=== PATIENT | female | born 1945 | race Caucasian/White ===

== ENCOUNTER 2017-02-27 13:47 | Inpatient (IN) | payer MEDICARE, OTHER ==
[~2017-02-27] VITALS: Ht 162.6 cm; Wt 66.1 kg
--- NOTE | ~2017-02-27 | EKG ---
PATIENT: BEKAH MERRITT UNIT #: [id number] Ventricular Rate: 98 BPM Atrial Rate: 98 BPM P-R Interval: 140 ms QRS Duration: 82 ms Q-T Interval: 400 ms QTC Calculation(Bezet): 510 ms P [place]: 62 degrees Calculated R [place]: 15 degrees Calculated T [place]: 44 degrees Diagnosis Line: Normal sinus rhythm Diagnosis Line: Nonspecific ST abnormality Diagnosis Line: Prolonged QT Diagnosis Line: Abnormal ECG Diagnosis Line: Diagnosis Line: Confirmed by GREGG LINDSEY MD ([id number]) on Diagnosis Line: 02/27/2017 3:34:23 PM INTERPRETING MD: JAZMYNE
--- NOTE | ~2017-02-27 | CO ---
Unit #: [id number] #: [id number] Patient: BEKAH MERRITT [id number] [facility]. [place], [place] [address] [id number] I MR#: [id number] NAME: BEKAH MERRITT ROOM: 55 Age: 71 Sex: F Admission Date: 02/27/2017 : 1945 Attending Physician: Handy Herring M.D. Primary Care Physician: Rajni Chaidez M.D. CONSULTATION REPORT JOB NOTE: CC: PRIMARY CARE PHYSICIAN REASON FOR CONSULTATION Cardiac management. HISTORY OF PRESENT ILLNESS This is a very pleasant 71-year-old female, who follows in the office with Dr. Kim. She has a past medical history of paroxysmal atrial fibrillation, not currently on any anticoagulation secondary to history of acute GI bleed secondary to AVMs back in March. States she has been tried on 2 anticoagulants and had bleeding with both, therefore, she has been off any anticoagulation since about April. She is currently only receiving aspirin, CAD status post PTCA and stent to the proximal and distal RCA in 2006, CVA, peripheral vascular disease with a history of bilateral carotid endarterectomies, hypertension, hyperlipidemia, diabetes mellitus, COPD on home oxygen therapy, chronic diastolic CHF, and obstructive sleep apnea. Last cardiac catheterization performed in 2008 revealed patent stents in the right coronary artery. She did have a 20% stenosis of the distal stent, but the left LAD and left main were normal. Circumflex is not visualized, probably absent or diminutive. The patient is RCA dominant. Last echocardiogram in 02/2016 showed an LVEF of 60, fzbl-qk-tecaepys MR and TR, and RVSP of 60 mmHg as well as some mild aortic stenosis. She presented to the hospital on 02/27/2017 secondary to complaints of increasing shortness of breath and dyspnea on exertion. The patient reports to me she has not been feeling well. States Sunday and Sunday she had some diarrhea and some abdominal cramping; however at present, her diarrhea has now resolved. She states however Sunday later in the day, her shortness of breath was worsening and she was very dyspneic with any exertion. She denied any complaints of chest pain or palpitations. She does state her oxygen saturations at home are dropping as she has a pulse oximetry where she checks at home. Saturations were running in the 70s. She is on oxygen at 3 L at home. She does report 2-pillow orthopnea, which is not new and does sleep in a recliner typically. She denies any fever or cough. Does report she has some back pain. She reports she had a recent injury to her back and had been undergoing physical therapy, but apparently re-injured again recently and that has been bothering her as of late. In the ER, oxygen saturation was noted to be in the 80s on 3 L nasal cannula. Her chest x-ray showed an enlarging right lower lobe pulmonary nodule/mass up to 5.5 cm concerning for primary pulmonary malignancy. The patient underwent CTA of the chest, which did show 5.3 cm maximum Unit #: [id number] #: [id number] Patient: BEKAH MERRITT dimension right lower lobe mass with moderate mediastinal adenopathy, largest node also measures 3.7 cm. This is concerning for right lower lobe carcinoma and metastatic disease. Initial blood pressure in the emergency room is 87/57. The patient was placed on increasing oxygen and also started on empiric antibiotic therapy. Initial lactic acid was 6.8, repeat lactic acid was 3.6. Initial EKG shows atrial fibrillation with rapid ventricular response rate of 129 beats per minute. Minimal voltage criteria for LVH. She did have some ST depression in the lateral leads. This could be rate related. Point of care troponin was less than 0.05. Repeat troponin was 0.10 and the patient did receive 250 mL fluid bolus x1 as well as Lopressor 2.5 mg IV x1 and was started on a low-dose beta marcelle. It appears she converted to normal sinus rhythm in approximately 220 this morning. At present, she is feeling better. She is resting in bed. Her breathing is better on 6 L nasal cannula. She does states she is still short of breath with minimal activity, but denies any chest pain or complaints of palpitations. PAST MEDICAL HISTORY 1. Coronary artery disease, status post PCI and stent in the proximal and distal RCA in 2006. 2. Last cardiac cath in 2008 revealed patent stents in the RCA with a 20% residual stenosis in the distal stent. Left main and LAD were normal. Left circumflex is not visualized and questionably congenitally absent as the patient is RCA dominant. 3. 2D echocardiogram on 03/06/2016 showed LVEF of 60%, eeuf-ys-tcqrkugk MR, TR, mild LVH, mild aortic stenosis. RVSP of 60 mmHg. 4. Paroxysmal atrial fibrillation, not on anticoagulation secondary to history of previous GI bleed with AVMs, now currently in sinus rhythm. 5. History of GI bleeding with AVMs. 6. Peripheral arterial disease with history of bilateral carotid endarterectomy. 7. CVA. 8. COPD, on home oxygen therapy. 9. Obstructive sleep apnea. 10. Hypertension. 11. Hyperlipidemia. 12. Diabetes mellitus type 2. 13. Tobacco abuse, down from 2 packs per day to 4 cigarettes per day. 14. Chronic diastolic CHF. PAST SURGICAL HISTORY 1. Cardiac catheterization. 2. Bilateral carotid endarterectomies. 3. Abdominal aortic aneurysm repair. HOME MEDICATIONS ProAir HFA one puff inhalation q.i.d. p.r.n., Combivent 1 puff inhalation every 6 hours p.r.n., Symbicort 80/4.5 two puffs inhalation b.i.d., amiodarone 50 mg p.o. daily, Paxil 20 mg p.o. daily, Lopressor 12.5 mg p.o. b.i.d., Col-Rite 100 mg p.o. b.i.d., MiraLAX 1 pack p.o. daily, Bumex 1 mg p.o. daily, Lipitor 20 mg p.o. daily, hydralazine 25 mg p.o. b.i.d., ferrous gluconate 324 mg p.o. daily, aspirin 81 mg p.o. daily, Lortab 5/325 one tab p.o. q.4 hours p.r.n., pantoprazole 40 mg p.o. q.a.m., folic acid 1 mg p.o. daily, Vitamin B12 1000 mcg p.o. daily. ALLERGIES Unit #: [id number] #: [id number] Patient: BEKAH MERRITT Codeine, penicillin, and Wellbutrin. SOCIAL HISTORY The patient lives with her daughter. Reformed tobacco abuse. Reports occasional alcohol use and denies any illicit drug use. FAMILY HISTORY Negative for coronary artery disease. REVIEW OF SYSTEMS 10-point review of systems was negative except for details as stated above in the HPI. PHYSICAL EXAMINATION VITAL SIGNS: Temperature 97.6, respiratory rate 18 to 20, pulse is 82, blood pressure 156/68. GENERAL: This is a 71-year-old female, in no acute distress. HEENT: Head is atraumatic and normocephalic. Pupils are equal and round. Mucous membranes are moist. NECK: Supple. No JVD. Normal carotid upstrokes. No bruits are auscultated. HEART: S1 and S2. Regular rate and rhythm. Ejection systolic murmur noted. LUNGS: Clear to auscultation. Some fine rales are noted bibasilar. No wheezes or rhonchi. ABDOMEN: Soft, nontender, nondistended. Bowel sounds are present. EXTREMITIES: Pulses are palpable. No clubbing, cyanosis, or edema is noted. NEUROLOGIC: She is awake, alert, and oriented. She moves all extremities. She follows commands with ease. DIAGNOSTIC STUDIES LABORATORY RESULTS: Sodium 138, potassium 4.4, chloride 100, CO2 of 21, BUN 36, creatinine 1.7, glucose 258. Point of care troponin was 0.05, repeat troponin was 0.10. Hemoglobin 9.8, hematocrit 30.2, WBCs 9.9, platelet count 229. BNP was 849. IMAGING STUDIES: 1. Chest x-ray shows enlarging right lower lobe pulmonary nodule/mass up to 5.5 cm concerning for primary pulmonary malignancy. 2. CTA of the chest shows 5.3 cm maximum dimension right lower lobe mass with moderate mediastinal adenopathy. The largest node is 3.7 cm which is concerning for right lower lobe carcinoma and metastatic disease. CARDIOVASCULAR STUDIES: EKG initially showed atrial fibrillation, rate of 129 beats per minute. Voltage criteria for LVH. Some ST depression was noted in the lateral leads could be rate related. QTc interval 562 milliseconds. Repeat EKG shows normal sinus rhythm, rate of 71 beats per minute. Minimal voltage criteria for LVH. QTc interval of 528 milliseconds. No acute ischemic changes noted. ASSESSMENT 1. Acute on chronic hypoxic respiratory failure. 2. Right lower lobe lung mass suspicious for lung carcinoma. 3. Stable angina. 4. Paroxysmal atrial fibrillation with spontaneous conversion to normal sinus rhythm. The patient is not on any anticoagulation secondary to prior gastrointestinal arteriovenous malformation bleeding. 5. Diastolic congestive heart failure. Unit #: [id number] #: [id number] Patient: BEKAH MERRITT 6. Valvular heart disease. 7. Chronic anemia. 8. History of coronary artery disease with prior stents to the right coronary artery. Recent catheterization in 2008 showed patent stents. 9. Hypertension. 10. Hyperlipidemia. 11. Diabetes mellitus type 2. 12. Chronic obstructive pulmonary disease and chronic oxygen therapy at home. 13. Indeterminate troponin. 14. Reformed tobacco. PLAN We have been asked to see the patient for medical management. We will plan to increase her amiodarone and her metoprolol to maintain normal sinus rhythm. Her metoprolol will be increased to 25 mg p.o. b.i.d. with parameters to hold for systolic less than 100 and heart rate less than 60. We will also increase her amiodarone 200 mg p.o. daily. The ischemic pattern seen on her initial EKG has resolved on the repeat EKG. The patient's initial point of care troponin was negative; however, repeat was noted to be 0.10. We will trend cardiac enzymes. She does also appear to be slightly fluid overloaded. We will give her one time dose of IV Lasix and repeat BMP, CBC, and magnesium level in the a.m. From a cardiac standpoint, it is okay to proceed with fine needle aspiration and biopsy of her lung mass. She will continue off anticoagulation at this time secondary to prior history of GI bleeding. Further recommendations pending Dr. Kim's assessment. Dictated by... Morena Rojas A.P.R.N. for Escobar Kim M.D. LMW/modl TD: 03/01/2017 17:48 JOB #: [id number] CONSULTATION REPORT Page 1 of 1 X Morena Rojas APRN X CONSULTATION REPORT
--- NOTE | ~2017-02-27 | CO ---
Unit #: [id number] #: [id number] Patient: BEKAH LORA [id number] [address] [place], [place] [address] [id number] I MR#: [id number] NAME: BEKAH LORA ROOM: 4 Age: 71 Sex: F Admission Date: 02/27/2017 : 1945 Attending Physician: Handy Herring M.D. Primary Care Physician: Rajni Chaidez M.D. Requesting Physician: Manuel Dumont M.D. Consultation Date: 03/07/2017 CONSULTATION REPORT REASON FOR CONSULTATION Newly diagnosed lung cancer, please evaluate. HISTORY OF PRESENT ILLNESS Ms. Bekah Lora is 71 years old with a history of COPD on senior care oxygen, CHF, and chronic kidney disease who was admitted to the hospital with shortness of breathing on 02/27/2017. Following admission, she had a CT scan of her chest which showed an increase in size of a previously noted mass in June of 2016. There is a mass measuring 5.3 x 4.1 cm in the posterior right lower lobe which was previously 3.3 x 2.5 cm. There is also mediastinal lymphadenopathy including a 1.7 cm paratracheal node, 1.4 cm in the precarinal node, and a 3 x 3 cm subcarinal node with small bilateral pleural effusions. She underwent CT-guided needle biopsy on 03/05/2017 with pathology showing non-small cell lung cancer with immunostains to characterize the malignancy further pending. She is scheduled to be discharged home today. Ms. Lora tells me that she has had no significant changes in appetite and weight in the past year although she is not a very good historian. She has had chronic shortness of breathing with recent worsening which is slightly better after the hospitalization. No hemoptysis. PAST HISTORY 1. Chronic respiratory failure, on home O2 for the past three years. 2. Chronic kidney disease. 3. Congestive heart failure with history of severe pulmonary hypertension and moderate aortic stenosis. 4. Coronary artery disease for which she has had angioplasty and stent placement. 5. Peripheral vascular disease with abdominal aortic aneurysm repair and bilateral carotid endarterectomies. 6. History of TIAs. 7. Paroxysmal atrial fibrillation, on amiodarone. 8. Hypertension. 9. Longstanding diabetes. PAST SURGICAL HISTORY 1. Abdominal aortic aneurysm. 2. Bilateral carotid endarterectomies. 3. Angioplasty and stent placement. FAMILY HISTORY Negative for cancer in immediate family. SOCIAL HISTORY Unit #: [id number] #: [id number] Patient: BEKAH LORA Lives with her daughter who is a registered nurse who works at [employer]. Her aoghinfj-by-naf works as a registered nurse at [employer] and a son who is a nurse practitioner, works in unit [employer]. She quit smoking a year ago. Rarely drinks any alcohol. ALLERGIES Penicillin, codeine, Wellbutrin. REVIEW OF SYSTEMS 14-point review of systems taken. CONSTITUTIONAL: As discussed above. EYES: Negative. EARS, NOSE, MOUTH AND THROAT: Negative. CARDIOVASCULAR: CHF, paroxysmal atrial fibrillation. RESPIRATORY: Chronic shortness of breathing. She is on 3 L of oxygen at home. GASTROINTESTINAL: Negative. GENITOURINARY: Negative. NEUROLOGIC: Negative. ALLERGIC/LYMPHATIC: Negative. SKIN: Negative. PSYCHIATRIC: Negative. PHYSICAL EXAMINATION GENERAL: She is a frail, elderly woman who looks somewhat older than stated age, sitting in bed. She is awake, alert, oriented x3. VITAL SIGNS: Temperature is 98.3, pulse is 51, respiratory rate 18, blood pressure 109/37. O2 sats 97% on 3 L. HEENT: Examination shows pupils equal, react well to light. Mild pallor, no icterus. Mucous membranes are moist. NECK: Shows no adenopathy, JVD, thyromegaly. CARDIOVASCULAR SYSTEM: First and second heart sounds are heard and regular. Soft systolic murmur in the base. LUNGS: Chest explanation is symmetric with a few rales at the bases. ABDOMEN: Soft, nontender. Bowel sounds active. EXTREMITIES: Warm with good pulses. Trace edema. Pulses are well felt. NEURO EXAMINATION: She is awake, alert, oriented x3 without any focal deficits. SKIN: Negative. PSYCHIATRIC: Normal affect. LYMPHATIC: No palpable lymph nodes. DIAGNOSTIC STUDIES LABORATORY: CBC with a white count of 10.4, hemoglobin 9.6, platelet count is 287,000. Basic metabolic panel showed BUN of 55, creatinine is 1.2 with eGFR of 46.1. Calcium is 8.3. RADIOLOGY: CT scan of the chest was personally reviewed by me with the findings of a right lower lobe lung mass which was fairly present previously and has now become larger in size with mediastinal lymphadenopathy. I printed copies of her images and showed the copies to Ms. Lora and her daughter, Morena, who is a registered nurse at [employer]. DISCUSSION I had an extensive discussion with Ms. Lora and her znsujjos-kv-acj, Unit #: [id number] #: [id number] Patient: BEKAH LORA, who is a registered nurse discussing that she has a newly diagnosed non-small cell lung cancer, at least a stage 3A based upon the fact that she has a 5.3 cm right lower lobe mass along with mediastinal lymphadenopathy with the size certainly concerning for metastatic disease. Discussed the next step would be to get a PET CT scan after discharge home to confirm stage and most likely she will require an MRI of the brain as well. Discussed that stage 3A disease is a treatable situation with concurrent chemoradiation therapy. However, her performance and significant comorbidity may impair the ability to give concurrent chemoradiation therapy. If she has more advanced disease, discussed that there are several new options including immunotherapy with checkpoint inhibitors. Suggest Keytruda and Opdivo which will be based upon PD-L1 standing. We discussed about histology of non-small lung cancer and the fact that immunostains are pending at this point to differentiate between squamous versus adenocarcinoma. Ms. Lora and her qqobheku-th-ghe had multiple questions, all of which were discussed with her satisfaction. We plan to discuss additional questions after discharge and PET CT scan. Dictated by... Aren Jefferson/esteban TD: 03/09/2017 07:55 JOB #: [id number] CONSULTATION REPORT Page 1 of 1 X Tony Nicolas MD CONSULTATION REPORT
--- NOTE | ~2017-02-27 | CR71 ---
[facility] A Service of [facility] RADIOLOGY TEXT RESULTS PATIENT: BEKAH MERRITT LOCATION: [place] [address] : [birth year] UNIT #: [id number] AGE: [address]: Handy Herring MD SEX: F ORDER DR: [id number] [facility] [address] [place], [place] [address] [id number] I MR#: [id number] Acc #: [id number] NAME: BEKAH MERRITT : 1945 SEX: F STUDY DATE/TIME: 03/05/2017 13:27 UNIT: [facility] ROOM: [facility] STUDY DESCRIPTION: CR Chest Single View Attending Physician: Handy Herring M.D. Ordering Physician: Rachel Butler M.D. Primary Care Physician: Rajni Chaidez M.D. MEDICAL IMAGING REPORT This report is preliminary unless electronic signature is present EXAM Chest x-ray, single view portable. HISTORY Posterior right side lung biopsy. Patient short of air today. COMMENT Single frontal portable view of the chest time 1527 on 03/05/2017 is reviewed. Comparison is from 02/27/2017. There is a mass lesion redemonstrated at the right lung base. Please correlate with biopsy result. No definite pneumothorax is seen. Cardiac silhouette is mildly enlarged and there are underlying chronic lung changes. Enlargement of the main pulmonary artery segment is consistent with underlying pulmonary hypertension. IMPRESSION No definite pneumothorax. Redemonstration of right lower lung mass. STAT * RESULT Dictated by... Jolly Senior M.D. THIS IS AN ELECTRONICALLY VERIFIED REPORT Jolly Senior M.D. at 03/05/2017 1:55 PM THOMAS/susan TD: 03/05/2017 13:50 JOB #: [id number] [facility] A Service of [facility] RADIOLOGY TEXT RESULTS PATIENT: BEKAH MERRITT LOCATION: [facility] 554-01 : [birth year] UNIT #: [id number] AGE: [address]: Handy Herring MD SEX: F ORDER DR: MEDICAL IMAGING REPORT Page 1 of 1 COPY
--- NOTE | ~2017-02-27 | CR72 ---
[facility] A Service of [facility] & [facility] RADIOLOGY TEXT RESULTS PATIENT: BEKAH MERRITT LOCATION: [facility] 55- : [birth year] UNIT #: [id number] AGE: [address]: Handy Herring MD SEX: F ORDER DR: [id number] [facility] [address] [place], [place] [address] [id number] I MR#: [id number] Acc #: [id number] NAME: BEKAH MERRITT : 1945 SEX: F STUDY DATE/TIME: 02/27/2017 14:44 UNIT: [facility] ROOM: [facility] STUDY DESCRIPTION: CR Chest Single View Portable Attending Physician: June Marin M.D. Ordering Physician: Phillip Culp M.D. Primary Care Physician: Rajni Chaidez M.D. MEDICAL IMAGING REPORT This report is preliminary unless electronic signature is present EXAM Single view chest. INDICATIONS Shortness of air. FINDINGS Single portable AP view chest compared to 07/01/2016. The cardiac size is mildly enlarged. Mediastinal contours are unchanged. There is background COPD. A rounded airspace opacity in the right lower lobe has increased in size from the June comparisons. This is concerning for a pulmonary malignancy. This measures up to 5.5 cm. Left lung is clear. IMPRESSION 1. Enlarging right lower lobe pulmonary nodule/mass measuring up to 5.5 cm. This is concerning for a primary pulmonary malignancy. Consider further evaluation with a CT scan. Dictated by... Jeremie Deluca M.D. THIS IS AN ELECTRONICALLY VERIFIED REPORT Jeremie Deluca M.D. at 02/28/2017 2:53 PM MICHELLE/chiqui TD: 02/27/2017 19:24 JOB #: [id number] MEDICAL IMAGING REPORT Page 1 of 1 COPY
--- NOTE | ~2017-02-27 | CT57 ---
[facility] A Service of [facility] RADIOLOGY TEXT RESULTS PATIENT: BEKAH MERRITT LOCATION: [facility] 55-01 : [birth year] UNIT #: [id number] AGE: [address]: June Marin MD SEX: F ORDER DR: [id number] [facility] [address] [place], [place] [address] [id number] I MR#: [id number] Acc #: [id number] NAME: BEKAH MERRITT : 1945 SEX: F STUDY DATE/TIME: 02/27/2017 16:03 UNIT: [facility] ROOM: [facility] STUDY DESCRIPTION: CT Chest Wo Cont Attending Physician: June Marin M.D. Ordering Physician: Phillip Culp M.D. Primary Care Physician: Rajni Chaidez M.D. MEDICAL IMAGING REPORT This report is preliminary unless electronic signature is present EXAM CT chest without contrast HISTORY Shortness of air for [address] exam was performed with one or more of the following radiation dose reduction techniques: automatic exposure control, adjustment of mA and/or kV according to patient size, and iterative reconstruction. FINDINGS CT chest without contrast is compared to 07/01/2016. CT chest without contrast demonstrates a rounded mass in the posterior right lower lobe corresponding to the abnormality on chest x-ray earlier today, measuring 5.3 cm x 4.1 cm, previously measuring 3.3 cm x 2.[address] 07/01/2016. This is concerning for malignancy, likely lung carcinoma. There is new rczf-sz-jiaicrug mediastinal adenopathy including 1.7 cm node posterior to the upper trachea, 1.4 cm precarinal node, 3.0 cm x 3.7 cm subcarinal node. These are concerning for davis metastases. Small bilateral pleural effusions. Mild atelectasis in the posterior lower lobes. Teov-nn-lyuayevs emphysema, primarily in the upper lobes and superior segments of the lower lobes. Mild compression fractures of T12 and L1 are new compared to the prior CT, but are likely chronic. A 5 mm nonobstructing stone upper pole left kidney. IMPRESSION 1. Enlarging mass posterior right lower lobe measures 5.3 cm in maximal dimension and moderate mediastinal adenopathy with the largest node in the subcarinal space measuring 3.7 cm. These are progressive findings compared to CT 07/01/2016 and are very concerning for right lower lobe lung carcinoma and davis metastatic disease. [facility] A Service of [facility] RADIOLOGY TEXT RESULTS PATIENT: BEKAH MERRITT LOCATION: [facility] 554-01 : [birth year] UNIT #: [id number] AGE: [address]: June Marin MD SEX: F ORDER DR: 2. New small bilateral pleural effusions. 3. Mild compression fractures of T12 and L1 are new compared to the prior study, but are most likely subacute to chronic. Pathologic compression fractures are not excluded but no definite destructive lesion is identified. Consider PET scan for further evaluation of these findings. 4. Small nonobstructing stone upper pole left kidney. Dictated by... Brandon Barillas M.D. THIS IS AN ELECTRONICALLY VERIFIED REPORT Brandon Barillas M.D. at 02/27/2017 11:48 PM JAYDA/genaro TD: 02/27/2017 23:16 JOB #: [id number] MEDICAL IMAGING REPORT Page 1 of 1 COPY
--- NOTE | ~2017-02-27 | NM69 ---
[facility] A Service of [facility] RADIOLOGY TEXT RESULTS PATIENT: BEKAH MERRITT LOCATION: [place] [id number] : [birth year] UNIT #: [id number] AGE: [address]: Handy Herring MD SEX: F ORDER DR: [id number] [facility] [address] [facility] [place], [place] [address] [id number] I MR#: [id number] #: [id number] NAME: BEKAH MERRITT : 1945 SEX: F STUDY DATE/TIME: 02/28/2017 9:25 UNIT: [facility] ROOM: [facility] STUDY DESCRIPTION: NM Pulm Vent and Perf Attending Physician: Handy Herring M.D. Ordering Physician: June Marin M.D. Primary Care Physician: Rajni Chaidez M.D. MEDICAL IMAGING REPORT This report is preliminary unless electronic signature is present EXAMINATION VQ lung scan. DATE: 02/28/2017 HISTORY [id number] respiratory failure, right lung mass, chronic anemia, acute renal incident injury versus chronic kidney disease, congestive heart failure, coronary disease, hypertension, diabetes. The patient states back pain with difficulty walking and shortness of breath and some chest pain over the right breast. Pain worse on Sunday. 48-year smoking history quit [address] chest without contrast 02/20/2017 at 16:03. Following the inhalation of 32.6 mCi technetium 99m DTPA in aerosol form for ventilation imaging purposes, and the intravenous administration of 5.91 mCi technetium 99m MAA for perfusion imaging purposes, multiple overhead projections were obtained of the chest and compared to the chest CT performed in the past 24 hours. FINDINGS 1. No VQ mismatch is identified. The overall perfusion features or greater than that of ventilation. IMPRESSION 1. Normal, negative VQ lung scan. Dictated by... Shira Swift M.D. THIS IS AN ELECTRONICALLY VERIFIED REPORT [facility] A Service of [facility] RADIOLOGY TEXT RESULTS PATIENT: BEKAH MERRITT LOCATION: [address] : [birth year] UNIT #: [id number] AGE: [address]: Handy Herring MD SEX: F ORDER DR: Shira Swift M.D. at 03/01/2017 12:09 PM [facility]/sandra TD: 02/28/2017 13:26 JOB #: [id number] MEDICAL IMAGING REPORT Page 1 of 1 COPY
--- NOTE | ~2017-02-27 | DS ---
Unit #: [id number] #: [id number] Patient: BEKAH MERRITT [id number] [address] [place], [place] [address] [id number] I MR#: [id number] NAME: BEKAH MERRITT ROOM: 554 Age: 71 Sex: F Admission Date: 02/27/2017 : 1945 Discharge Date: 03/07/2017 Attending Physician: Handy Herring M.D. Primary Care Physician: Rajni Chaidez M.D. DISCHARGE SUMMARY REASON FOR ADMISSION Dyspnea. HISTORY OF PRESENT ILLNESS/HOSPITAL COURSE The patient is a 71-year-old female, underlying history of chronic respiratory failure on home O2, underlying history of COPD, prior history of diastolic dysfunction who presented secondary to dyspnea/shortness of breath. Please refer to H and P for complete details. Initially, patient had undergone initial chest x-ray which raised the possibility of right lower lobe infiltrate versus acute mass. Therefore, this subsequently prompted a CT chest noncontrast to be performed which revealed enlarging mass in the posterior right lower lobe approximately 5.3 cm in maximum dimension. Very concerning for underlying lung carcinoma. There were mild compression fractures of T12 and L1 which were new, likely subacute to/chronic also noted. In regards to the same, consultation was placed to Dr. Dumont and associates for evaluation. Through her hospital course, patient was treated with appropriate medications. In regards to her underlying history of COPD, her respiratory status initially was compromised. She was in acute hypoxic respiratory failure. After appropriate medications, ultimately patient underwent an FNA by interventional radiology with final pathological results revealing non-small cell lung carcinoma findings. At this point in time, after Dr. Roger of oncology services sees and evaluates patient, patient will be stable for discharge home. She has been discharged on 3 L of O2 at rest and 5 L of O2 with exertion. She will be given appropriate prescriptions at time of discharge in regards to her underlying COPD. It is requested that she follow up with oncology for ongoing care. She does have a fairly good support system at home and all plans have been reviewed with patient's family present at bedside as well. Please note - during hospital course, consultation had also been placed to Dr. Kim of cardiology services secondary to prior history of diastolic dysfunction. Patient ultimately did undergo 2D echocardiogram which revealed findings consistent with severe pulmonary hypertension. She was initiated on sildenafil while here and this will be continued at time of discharge. FINAL DISCHARGE DIAGNOSES 1. Non-small cell lung carcinoma right lower lobe. Unit #: [id number] #: [id number] Patient: BEKAH MERRITT 2. Acute hypoxic respiratory failure on admission. 3. End stage chronic obstructive pulmonary disease. 4. Diastolic dysfunction. 5. Severe pulmonary hypertension. 6. Chronic kidney disease. 7. Anemia. 8. Prior history of coronary artery disease. 9. Paroxysmal atrial fibrillation history. 10. Hypertension. 11. Type 2 diabetes. FINAL DISCHARGE MEDICATIONS 1. ProAir HFA, one puff q.6 p.r.n. 2. Breo Ellipta 100 mcg, take as directed. 3. Combivent Respimat, one inhalation q.6 scheduled. 4. Prednisone 40 mg p.o. daily x5 days. 5. Amiodarone 200 mg p.o. q. a.m. 6. Paxil 20 mg p.o. daily. 7. Lopressor 25 mg p.o. b.i.d. 8. Colace 100 mg p.o. b.i.d. 9. MiraLAX daily. 10. Bumex 1 mg p.o. daily. 11. Lipitor 20 mg p.o. daily. 12. Ferrous gluconate 324 mg p.o. daily. 13. Aspirin 81 mg daily. 14. [place] 5/325, one tablet p.o. q.4 p.r.n., #30, prescription given. 15. Protonix 40 mg p.o. daily. 16. Sildenafil 20 mg p.o. t.i.d. 17. Folic acid 1 mg p.o. daily. 18. Vitamin B12 1000 mcg p.o. daily. DISCHARGE CONDITION Stable. DISCHARGE DISPOSITION Home. Appropriate outpatient followup with oncology as detailed above. Dictated by... Handy Herring M.D. SALLY/esteban TD: 03/08/2017 06:46 JOB #: [id number] Unit #: [id number] #: [id number] Patient: BEKAH MERRITT DISCHARGE SUMMARY Page 1 of 1 X Handy Herring MD DISCHARGE SUMMARY
--- NOTE | ~2017-02-27 | EKG ---
PATIENT: BEKAH MERRITT UNIT #: [id number] Ventricular Rate: 129 BPM Atrial Rate: 136 BPM QRS Duration: 86 ms Q-T Interval: 316 ms QTC Calculation(Bezet): 462 ms Calculated R [place]: 5 degrees Calculated T [place]: 108 degrees Diagnosis Line: Atrial fibrillation with rapid ventricular Diagnosis Line: response Diagnosis Line: Minimal voltage criteria for LVH, may be normal Diagnosis Line: variant Diagnosis Line: ST depression, consider subendocardial injury or Diagnosis Line: digitalis effect Diagnosis Line: Abnormal QRS-T angle, consider primary T wave Diagnosis Line: abnormality Diagnosis Line: Abnormal ECG Diagnosis Line: When compared with ECG of 27-FEB-2017 14:19, Diagnosis Line: Atrial fibrillation has replaced Sinus rhythm Diagnosis Line: ST now depressed in Anterolateral leads Diagnosis Line: Confirmed by GREGG LINDSEY MD ([id number]) on Diagnosis Line: 02/28/2017 10:36:59 PM INTERPRETING MD: JAZMYNE
--- NOTE | ~2017-02-27 | CT134 ---
[facility] A Service of [facility] RADIOLOGY TEXT RESULTS PATIENT: BEKAH MERRITT LOCATION: [facility] [id number] : [birth year] UNIT #: [id number] AGE: [address]: Handy Herring MD SEX: F ORDER DR: [id number] [facility] [address] [facility]. [place], [place] [address] [id number] I MR#: [id number] Acc #: [id number] NAME: BEKAH MERRITT : 1945 SEX: F STUDY DATE/TIME: 03/05/2017 12:29 UNIT: [facility] ROOM: [facility] STUDY DESCRIPTION: CT Guide Attending Physician: Handy Herring M.D. Ordering Physician: Manuel Dumont M.D. Primary Care Physician: Rajni Chaidez M.D. MEDICAL IMAGING REPORT This report is preliminary unless electronic signature is present EXAM CT-guided lung biopsy INDICATION Lung mass. This was identified on a CT of the chest performed February 27, 2017. This mass is located at the right lung base. PROCEDURE This CT examination was performed with one or more of the following radiation dose reduction techniques: automatic exposure control, adjustment of mA and/or kV according to patient size, and iterative reconstruction. The risks, benefits, and alternatives to the procedure were explained to the patient, and signed, informed consent was obtained. She was placed prone on the CT scanner gantry. Preliminary CT scan was performed overlying the area of concern which again showed a large mass within the right lower lobe. Overlying skin was marked. Patient was prepped and draped in the usual sterile fashion. Time-out was performed as per protocol. Skin and subcutaneous tissues were anesthetized with buffered lidocaine. A 17-gauge coaxial needle was advanced into the lesion. Repeat CT scan confirmed appropriate trajectory of the needle. At this point, 2 core samples were obtained using an 18-gauge BioPince biopsy gun. Needle was then removed and manual pressure was applied until hemostasis was obtained. Patient tolerated the procedure well. There were no immediate complications. Final CT scan through the area of concern did not show any evidence of pneumothorax. Patient did receive moderate sedation consisting of 2 mg of Versed and 50 mcg of fentanyl. I supervised the IVR nurse and monitored the patient's vital signs for a total of 30 minutes of face to face time. IMPRESSION Technically successful CT-guided lung biopsy as noted above. [facility] Service of [facility] RADIOLOGY TEXT RESULTS PATIENT: BEKAH MERRITT LOCATION: [facility] 554- : [birth year] UNIT #: [id number] AGE: [address]: Handy Herring MD SEX: F ORDER DR: during the procedure and permanent images were saved. Dictated by... Rachel Butler M.D. THIS IS AN ELECTRONICALLY VERIFIED REPORT Rachel Butler M.D. at 03/07/2017 5:42 PM TIM/edi TD: 03/07/2017 06:09 JOB #: [id number] MEDICAL IMAGING REPORT Page 1 of 1 COPY
--- NOTE | ~2017-02-27 | CO ---
Unit #: [id number] #: [id number] Patient: BEKAH MERRITT [id number] [place] [address] [facility]. [place], [place] [address] [id number] I MR#: [id number] NAME: BEKAH MERRITT ROOM: 554 Age: 71 Sex: F Admission Date: 02/27/2017 : 1945 Attending Physician: Handy Herring M.D. Primary Care Physician: Rajni Chaidez M.D. CONSULTATION REPORT JOB NOTE: CC: DR. CHAIDEZ. REASON FOR CONSULTATION Shortness of breath. HISTORY OF PRESENT ILLNESS A 71-year-old female with severe COPD, chronic respiratory failure, reformed tobacco use quitting approximately a year ago, presents with shortness of breath. She tells me she originally hurt her back a few weeks ago, then she developed some diarrhea. She had some increased dyspnea on exertion and actually noted her pulse oximetry revealing decreased saturations. She also developed orthopnea. She did not have any documented fever. No cough, no sputum production, and no real wheezing. She said she "strained her back again" and presented to the hospital. In the hospital, she was found to be hypoxemic on her 3 L. Chest x-ray showed a possible right lower lobe mass versus infiltrate. She currently denies any further diarrhea. PAST MEDICAL HISTORY Remarkable for chronic respiratory failure, COPD, diastolic heart failure, pulmonary hypertension but that echo was unavailable, aortic stenosis, coronary artery disease, peripheral vascular disease, TIAs, paroxysmal atrial fibrillation, hypertension, diabetes. MEDICATIONS At home, she cannot tell me exactly what inhalers she is on, but she believes she is on Symbicort. There is mention of ProAir and Combivent in the EHR. Other medicines include amiodarone, Paxil, Lopressor, Bumex, Lipitor, hydralazine, iron, aspirin, Lortab, Protonix, and some vitamins and bowel prep medications. ALLERGIES Penicillin, codeine, and Wellbutrin. SOCIAL HISTORY Quit smoking 1 year ago. FAMILY HISTORY No familial lung disease. REVIEW OF SYSTEMS Fairly unremarkable. Again, no diarrhea, abdominal pain, chest pain, palpitations, leg pain, swelling, hemoptysis, documented fever, or chills. Further review of systems negative. Unit #: [id number] #: [id number] Patient: BEKAH MERRITT PHYSICAL EXAMINATION GENERAL: Reveals a patient, who is in no acute distress. VITAL SIGNS: She is afebrile, pulse 82, respiratory rate is 18, blood pressure is 158/68, 5 feet 4 inches, 148 pounds. HEENT: Pupils equal, round, and reactive to light. Sclerae anicteric. NECK: Supple. No supraclavicular or cervical adenopathy appreciated. CHEST: Equal breath sounds. Prolonged expiratory phase. No definite consolidation. CARDIAC: Reveals regular rate and rhythm. No pathologic murmur, rub, or gallop. ABDOMEN: Soft and nontender. No hepatomegaly or rebound. EXTREMITIES: Reveal no clubbing, cyanosis, or edema. NEUROLOGIC: Grossly intact. No focal motor or sensory deficits. Full neurologic exam not performed as she was seen in the echo lab. DIAGNOSTIC STUDIES IMAGING STUDIES: CT scan reveals a right lower lobe mass like lesion. There does appear to be some adenopathy. No definite pneumonia. Emphysema was noted. LABORATORY RESULTS: No arterial blood gas, but last year she was noted to be hypercapnic to some degree. BUN is 36, creatinine is 1.7. White blood cell count 9.9, hemoglobin 9.8, platelet count 229. Blood cultures performed and are pending. CARDIOVASCULAR STUDIES: EKG, sinus rhythm, nonspecific ST-T wave changes. IMPRESSION 1. Acute on chronic respiratory failure. 2. Chronic obstructive pulmonary disease possibly with mild exacerbation. 3. Abnormal CAT scan consistent with malignancy. 4. Extensive workup including V/Q scan and echocardiogram pending results. 5. Medical problems listed above. PLAN Maximize pulmonary status. Antibiotics nebulized bronchodilators and brief pulse of steroids. Obviously, follow up above tests. I have discussed with her the findings of her CT scan. We discussed options and I have decided to pursue a fine-needle aspiration. Complications including bleeding, infection, pneumothorax have been discussed. It is large in peripheral, so I think the risk of pneumothorax is fairly small. Given her multiple medical problems and general disability, treatment options are going to be somewhat limited if in fact it does roller turner to be cancer. Thank you very much for allowing me to participate in the care of Ms. Byrd. Dictated by... Manuel Dumont M.D. PETRA/nikko TD: 03/01/2017 07:21 JOB #: [id number] CC: Nida Guthrie M.D. Unit #: [id number] #: [id number] Patient: BEKAH MERRITT CONSULTATION REPORT Page 1 of 1 X Manuel Dumont MD CONSULTATION REPORT
--- NOTE | ~2017-02-27 | HP ---
Unit #: [id number] #: [id number] Patient: BEKAH MERRITT [id number] [address] [place], [place] [address] [id number] I MR#: [id number] NAME: BEKAH MERRITT ROOM: 554 Age: 71 Sex: F Admission Date: 02/27/2017 : 1945 Attending Physician: June Marin M.D. Primary Care Physician: Rajni Chaidez M.D. HISTORY AND PHYSICAL CHIEF COMPLAINT Short of air. HISTORY OF PRESENT ILLNESS The patient is a 71-year-old female with a past medical history of chronic respiratory failure, COPD, CHF, chronic anemia, chronic kidney disease, pulmonary hypertension, valvular heart disease, coronary artery disease, paroxysmal atrial fibrillation, hypertension, and diabetes, who presented to the emergency department for evaluation of the above. The patient states that she was in her usual state of health until February 23, 2017, when she started having diarrhea. She states that she had diarrhea on the and the . That has since resolved. She started also feeling generally weak at that time. She states that she has had increased dyspnea on exertion. She noticed that her oxygen saturation was dropping to the 70s on her home oxygen of three liters. She states that it has gotten progressively worse over the past couple of days. She does have two to three pillow orthopnea that is not a new problem. She typically sleeps in a recliner with an additional couple of pillows. She states that she did have some right-sided chest pain this morning that has since resolved. She denies any cough. She denies any leg swelling and no change in her weight. She states that she has been taking her medications as prescribed. She states that she has been experiencing back pain. She states that she "strained her back." She then exacerbated the back pain on February 24 when she tried to make her bed. She states that she has had pain since that time. In the emergency department, initial pulse and blood pressure were 105 and 87/57, respectively, and oxygen saturation was 83% on three liters. Chest x-ray shows a right lower lobe mass versus infiltrate. Laboratory is notable for BNP of 849. BUN and creatinine are 36 and 1.7, respectively, and glucose is 258. Initial troponin is less than 0.05. EKG shows normal sinus rhythm with a rate of 98 beats per minute. Lactic acid was 6.8. She is being admitted to [facility] for evaluation and further treatment. PAST MEDICAL HISTORY 1. Admission to [facility] August 05-2016, for acute kidney injury. The patient was also noted to have viral gastroenteritis during that admission. 2. Chronic respiratory failure on three liters of oxygen per nasal cannula continuous, followed by Chest Medicine. 3. Chronic obstructive pulmonary disease. 4. Congestive heart failure. The patient had an echocardiogram [facility] Unit #: [id number] #: [id number] Patient: BEKAH MERRITT 2011, that showed moderate concentric left ventricular hypertrophy with an ejection fraction greater than 65%. Trace to mild mitral valve regurgitation was noted and trace tricuspid regurgitation. Right ventricular systolic pressure was normal. Aortic valve was noted to be mildly sclerotic. Of note, the patient possibly had another echocardiogram since that time because per the Discharge Summary from August 07, 2016, the patient was noted to have severe pulmonary hypertension, as well as moderate aortic stenosis which appears to be a change from the echocardiogram in [facility]. 5. Valvular heart disease with moderate aortic stenosis (per Discharge Summary from August 07, 2016). 6. Coronary artery disease, status post cardiac stent placement. 7. Peripheral vascular disease, status post abdominal aortic aneurysm repair and bilateral carotid endarterectomies. 8. History of TIA. 9. Anemia secondary to iron deficiency and B12 deficiency. 10. Paroxysmal atrial fibrillation maintained on amiodarone. 11. Hypertension. 12. Diabetes. PAST SURGICAL HISTORY 1. Abdominal aortic aneurysm repair. 2. Bilateral carotid endarterectomies. 3. Cardiac catheterization. SOCIAL HISTORY The patient lives with her daughter. She quit smoking. She reports occasional alcohol use. She has both a cane and a walker. Her code status is a Full Code. FAMILY HISTORY Dementia. ALLERGIES Penicillin, codeine, and Wellbutrin. HOME MEDICATIONS 1. ProAir 4 times daily p.r.n. 2. Combivent q.6 hours p.r.n. 3. Symbicort 80/4.5 at 2 puffs inhaled twice daily. 4. Amiodarone 50 mg daily. 5. Paxil 20 mg daily. 6. Lopressor 12.5 mg twice daily. 7. Docusate 100 mg twice daily. 8. MiraLAX daily p.r.n. 9. Bumex 1 mg daily. 10. Lipitor 20 mg daily. 11. Hydralazine 25 mg b.i.d. 12. Iron 324 mg daily. 13. Aspirin 81 mg daily. 14. Lortab 5/325 q.4 hours p.r.n. 15. Pantoprazole 40 mg daily. 16. Folic acid 1 mg daily. 17. Vitamin B12 at 1000 mcg daily. REVIEW OF SYSTEMS A complete review of systems is negative except as indicated in the HPI. Unit #: [id number] #: [id number] Patient: BEKAH MERRITT PHYSICAL EXAMINATION VITAL SIGNS: Temperature 97.8, pulse 105, respirations 20, blood pressure 87/57 and most recently 114/81, and oxygen saturation 83% on 3 liters. GENERAL: Patient is a very pleasant female who is awake, alert, and in no acute distress. HEENT: Head is atraumatic. Mucous membranes are moist. NECK: Supple. Trachea is midline. CARDIOVASCULAR: Regular rate and rhythm. LUNGS: Decreased breath sounds. Patient is currently on nonrebreather. Breathing is mildly labored with conversation. ABDOMEN: Soft and nontender with bowel sounds present in all four quadrants. EXTREMITIES: Nontender with no pedal edema. NEUROLOGIC: Patient is awake and alert. She follows commands. PSYCHIATRIC: Mood and affect are normal. Patient is cooperative. SKIN: Skin of examined areas is warm and dry. DIAGNOSTIC STUDIES LABORATORY: Complete blood count notable for hemoglobin and hematocrit of 9.8 and 30.2, respectively, MCV 85.6, and RDW 16.1. Troponin is less than 0.05. INR is 1. Comprehensive metabolic panel notable for CO2 of 21, glucose 258, BUN and creatinine 36 and 1.7, respectively, and alkaline phosphatase 113. BNP is 849. Lactic acid 6.8. IMAGING: Chest x-ray shows right lower lobe mass versus infiltrate. CARDIOLOGY: EKG shows normal sinus rhythm with a rate of 98 beats per minute. ASSESSMENT The patient is a 71-year-old female with: 1. Acute on chronic respiratory failure, hypoxic. 2. Right lung mass versus infiltrate. Review of [facility] records shows that the patient had a CT of the chest without contrast on July 01, 2016, that noted a new round opacity in the right lower lobe concerning for atelectasis versus possible malignancy. Short-interval followup was recommended. I do not see that she had any repeat imaging in [facility]. Patient denies cough. She states that she did have chills a couple of days ago. She has had shortness of breath. 3. Chronic obstructive pulmonary disease. 4. Possible sepsis with a lactic acid of 6.8. The patient denies any cough or fever. White blood cell count is normal. The patient was hypotensive on presentation with a blood pressure of 87/57 which may explain the elevated lactic acid. However, I will empirically start the patient on antibiotics pending further workup. 5. Chronic anemia. The patient's hemoglobin was 8.5 on August 07, 2016. It is 9.8 today. 6. Acute kidney injury versus chronic kidney disease. The patient's creatinine was 1.7. Baseline appears to be around 1.2. 7. Congestive heart failure, diastolic, with ejection fraction of greater than 65% noted on echocardiogram March 08, 2014. 8. Severe pulmonary hypertension per the Discharge Summary from July 2016. 9. Valvular heart disease, again, per the Discharge Summary from July 2016. 10. Coronary artery disease, status post stent placement. Unit #: [id number] #: [id number] Patient: BEKAH MERRITT 11. Paroxysmal atrial fibrillation, maintained on amiodarone. 12. Hypertension. 13. Hyperlipidemia. 14. Diabetes. 15. Peripheral vascular disease, status post abdominal aortic aneurysm repair and bilateral carotid endarterectomies. 16. Transient ischemic attack. PLAN 1. Admit to intermediate level. 2. A 2 gram sodium, 1800 mL fluid-restricted, heart-healthy, consistent carbohydrate diet. 3. Titrate oxygen for saturations greater than 92%. 4. Consult Chest Medicine regarding acute on chronic respiratory failure. 5. Follow up results of chest CT. 6. V/Q scan. 7. P.r.n. DuoNebs. 8. Strict I/Os. 9. Daily weights. 10. Serial cardiac enzymes. 11. A 2D echo if not done within the past year. 12. Blood cultures x2. 13. Sputum culture and sensitivity. 14. Rocephin and azithromycin pending further workup. 15. Procalcitonin level. 16. Sepsis protocol with repeat lactic acid. 17. Monitor blood pressure closely. 18. Hold antihypertensive medications due to hypotension. 19. Low-dose sliding scale insulin with Accu-Cheks. 20. Check CPK. 21. Repeat labs in the morning. 22. Additional workup and consultants based on above. 23. Regarding code status, the patient is a Full Code. 1. Dictated by June Marin M.D. KELLEY/milena TD: 02/27/2017 18:59 JOB #: [id number] HISTORY AND PHYSICAL Page 1 of 1 X June Marin MD X HISTORY AND PHYSICAL
--- NOTE | ~2017-02-27 | EKG ---
PATIENT: BEKAH MERRITT UNIT #: [id number] Ventricular Rate: 71 BPM Atrial Rate: 71 BPM P-R Interval: 126 ms QRS Duration: 88 ms Q-T Interval: 486 ms QTC Calculation(Bezet): 528 ms P [place]: 84 degrees Calculated T [place]: 69 degrees Diagnosis Line: Normal sinus rhythm Diagnosis Line: Minimal voltage criteria for LVH, may be normal Diagnosis Line: variant Diagnosis Line: Prolonged QT Diagnosis Line: Abnormal ECG Diagnosis Line: When compared with ECG of 28-FEB-2017 00:22, Diagnosis Line: (unconfirmed) Diagnosis Line: Sinus rhythm has replaced Atrial fibrillation Diagnosis Line: Vent. rate has decreased BY 58 BPM Diagnosis Line: ST no longer depressed in Anterolateral leads Diagnosis Line: Confirmed by VIMAL WICK MD ([id number]) on 03/01/2017 Diagnosis Line: 6:46:41 PM INTERPRETING MD: SHAMIKA PADRON
--- NOTE | ~2017-02-27 | CR71 ---
[facility] A Service of [facility] & [facility] RADIOLOGY TEXT RESULTS PATIENT: BEKAH MERRITT LOCATION: [place] [address] : [birth year] UNIT #: [id number] AGE: [address]: Handy Herring MD SEX: F ORDER DR: [id number] [facility] [address] [place], [place] [address] [id number] MR#: [id number] Acc #: [id number] NAME: BEKAH MERRITT : 1945 SEX: F STUDY DATE/TIME: 03/05/2017 15:22 UNIT: [facility] ROOM: [facility] STUDY DESCRIPTION: CR Chest Single View Attending Physician: Handy Herring M.D. Ordering Physician: Rachel Butler M.D. Primary Care Physician: Rajni Chaidez M.D. MEDICAL IMAGING REPORT This report is preliminary unless electronic signature is present EXAM Chest x-ray, 03/[address] guided right lung biopsy today. History of right lower lobe mass. FINDINGS AP view of the chest is compared with earlier this afternoon. Again seen is a known right lower lung mass. No pneumothorax on either side of the chest. Heart remains enlarged. IMPRESSION No pneumothorax following right lower lung mass biopsy today. Dictated by... Toni Lacy Jr., M.D. THIS IS AN ELECTRONICALLY VERIFIED REPORT Toni Lacy Jr., M.D. at 03/06/2017 7:58 AM FRANCY/mallika TD: 03/06/2017 03:32 JOB #: [id number] MEDICAL IMAGING REPORT Page 1 of 1 COPY
[~2017-02-27 13:47] MED LIST: ACETAMINOPHEN PO; ACETAMINOPHEN325 MG PO; ACTOS PO; ALDACTONE25 MG PO; ALEVE; AMIODARONE HCL100 MG PO; AMIODARONE PO; ASPIRIN PO; ASPIRIN81 MG PO; B-121000 MC1 PO; BAYER CHEWABLE81 MG PO; BREO ELLIPTA 11 EACH INH; BUMEX2 MG PO; COMBIVENT U/D3 M2 INH; CORDARONE200 M1 PO; COUMADIN PO; COUMADIN2.5 MG PO; COUMADIN3 MG PO; COUMADIN5 MG PO; CYANOCOBAL1000 MCG/1 INJ; DELTASONE20 MG PO; DOCUSATE SODIU100 MG PO; FAMVIR500 M1 PO; FENOFIBRATE200 M1 PO; FENOFIBRATE67 MG PO; FERROUS GLUCON324 MG PO; FERROUS SULFATE PO; FLEXERIL PO; FOLIC ACID1 MG PO; GLUCOPHAGE XR500 MG PO; HYDRALAZINE HCL25 MG PO; IRON325 ( 652 PO; LASIX PO; LEVAQUIN750 M1 PO; LEVEMIR SUBQ; LIPITOR20 MG PO; LISINOPRIL5 MG PO; LOPRESSOR PO; LORTAB 5-325 M1 EACH PO; LOTREL 5/20 MG1 CAP PO; METFORMIN HCL1000 M1 PO; METFORMIN HCL500 M1 PO; METOPROLOL SUCC25 MG PO; METOPROLOL TART25 MG PO; MILK OF MAGNESIA PO; MIRALAX17 GM PO; NORCO1 TAB 10/3 PO; NOVOLOG100 U/ML SUBQ; OXYGEN INH; PANTOPRAZOLE SO40 MG PO; PAXIL PO; PERCOCET5/325 PO; PLAVIX PO; PREDNISONE10 MG/DOSE PO; PREDNISONE5 M1 PO; PRINIVIL5 MG PO; PROAIR HFA8.5 GM IH; SYMBICORT INH; SYMBICORT80 INH; TOPROL XL PO; TOPROL XL50 MG PO; TRICOR PO; VICODIN 5/500 T1 TAB PO; XARELTO15 MG PO; XARELTO20 MG PO; ZOCOR PO
[2017-02-27 14:42] LABS: BASOPHIL# 0.1 X10e3 (0-0.3); BASOPHIL% 0.7 % (0-2.5); EOSINOPHIL# 0.2 X10e3 (0-0.7); EOSINOPHIL% 1.9 % (0.0-7.0); HEMATOCRIT 30.2 % (35.0-45.0); HEMOGLOBIN 9.8 gm/dL (12.0-16.0); LYMPHOCYTE% 10.1 % (17.0-45.0); MEAN CELL VOLUME 85.6 FL (83-96); MEAN CORPUSCULAR HEMOGLOBIN 27.7 PG (28-34); MEAN CORPUSCULAR HGB CONC 32.3 g/dL (30-36); MEAN PLATELET VOLUME 8.3 FL (6.5-11.5); MONOCYTE# 0.7 X10e3 (0-1.0); MONOCYTE% 6.7 % (3.0-12.0); NEUTROPHIL# 7.9 X10e3 (1.5-7.1); NEUTROPHIL% 80.6 % (40-75); PLATELET COUNT 229 X10e3 (140-420); RED BLOOD COUNT 3.53 X10e (3.90-5.30); RED CELL DISTRIBUTION WIDTH 16.1 % (11.0-15.5); WHITE BLOOD COUNT 9.9 X10e3 (4.0-10.5)
[2017-02-27 14:48] LABS: DIFF IND NO
[2017-02-27 14:49] LABS: POC - CKMB 1.6 ng/mL (0.0-7.9); POC - TROPONIN <0.05 ng/mL (<=0.05)
[2017-02-27 14:57] LABS: PARTIAL THROMBOPLASTIN TIME 27.9 SECONDS (23.5-31.3); PROTHROMBIN TIME (PATIENT) 11.3 SECONDS (10.0-11.7)
[2017-02-27 15:03] LABS: ALBUMIN SERUM 3.7 g/dL (3.5-5.0); BILIRUBIN, DIRECT 0.1 mg/dL (0.0-0.2); BILIRUBIN,INDIRECT 0.8 mg/dL (0.0-0.9); BILIRUBIN,TOTAL 0.9 mg/dL (0.2-2.0); BUN/CREATININE RATIO 21.17; CALCIUM SERUM 8.5 mg/dL (8.4-10.2); CREATININE SERUM 1.7 mg/dL (0.6-1.4); GLOM FILT RATE Estimated 30.2 mL/min (>60); POTASSIUM 4.4 mmol/L (3.5-5.1); PROTEIN TOTAL SERUM 7.6 g/dL (6.0-8.3)
[2017-02-27] MEDS ORDERED: PROAIR HFA8.5 GM INH (15:32)
[2017-02-27] MEDS ORDERED: COMBIVENT RESPIM4 GM INH (15:32)
[2017-02-27] MEDS ORDERED: PAXIL PO (15:33)
[2017-02-27] MEDS ORDERED: SYMBICORT80 INH (15:33)
[2017-02-27] MEDS ORDERED: AMIODARONE HCL100 MG PO (15:33)
[2017-02-27] MEDS ORDERED: MIRALAX17 GM PO (15:33)
[2017-02-27] MEDS ORDERED: LOPRESSOR PO (15:33)
[2017-02-27] MEDS ORDERED: COL-RITE50 MG PO (15:33)
[2017-02-27] MEDS ORDERED: FERROUS GLUCON324 M1 PO (15:34)
[2017-02-27] MEDS ORDERED: ASPIRIN EC81 M1 PO (15:34)
[2017-02-27] MEDS ORDERED: BUMEX1 MG PO (15:34)
[2017-02-27] MEDS ORDERED: LIPITOR20 MG PO (15:34)
[2017-02-27] MEDS ORDERED: HYDRALAZINE HCL25 MG PO (15:34)
[2017-02-27] MEDS ORDERED: B-121000 MC1 PO (15:35)
[2017-02-27] MEDS ORDERED: PANTOPRAZOLE SO40 MG PO (15:35)
[2017-02-27] MEDS ORDERED: LORTAB 5-325 M1 EACH PO (15:35)
[2017-02-27] MEDS ORDERED: FOLIC ACID1 MG PO (15:35)
[2017-02-27 17:06] LABS: POC - CKMB 1.6 ng/mL (0.0-7.9); POC - TROPONIN <0.05 ng/mL (<=0.05)
[2017-02-28 01:13] LABS: CK TOTAL 43 IU/L (26-140)
[2017-02-28 08:01] LABS: CK TOTAL 44 IU/L (26-140)
[2017-02-28 14:01] LABS: CK TOTAL 42 IU/L (26-140)
[2017-02-28 20:12] LABS: CK TOTAL 36 IU/L (26-140)
[2017-03-01 05:20] LABS: HEMATOCRIT 25.4 % (35.0-45.0); HEMOGLOBIN 8.2 gm/dL (12.0-16.0); MEAN CELL VOLUME 85.6 FL (83-96); MEAN CORPUSCULAR HEMOGLOBIN 27.8 PG (28-34); MEAN CORPUSCULAR HGB CONC 32.5 g/dL (30-36); MEAN PLATELET VOLUME 8.5 FL (6.5-11.5); RED BLOOD COUNT 2.96 X10e (3.90-5.30); RED CELL DISTRIBUTION WIDTH 16.5 % (11.0-15.5); WHITE BLOOD COUNT 6.7 X10e3 (4.0-10.5)
[2017-03-01 05:43] LABS: PARTIAL THROMBOPLASTIN TIME 25.9 SECONDS (23.5-31.3); PROTHROMBIN TIME (PATIENT) 11.3 SECONDS (10.0-11.7)
[2017-03-01 07:08] LABS: BUN/CREATININE RATIO 35.38; CALCIUM SERUM 8.8 mg/dL (8.4-10.2); CREATININE SERUM 1.3 mg/dL (0.6-1.4); GLOM FILT RATE Estimated 41.8 mL/min (>60); MAGNESIUM 1.8 mg/dL (1.6-3.0); POTASSIUM 4.7 mmol/L (3.5-5.1)
[2017-03-02 07:08] LABS: HEMATOCRIT 25.8 % (35.0-45.0); HEMOGLOBIN 8.5 gm/dL (12.0-16.0); MEAN CELL VOLUME 84.7 FL (83-96); MEAN CORPUSCULAR HEMOGLOBIN 27.9 PG (28-34); MEAN CORPUSCULAR HGB CONC 32.9 g/dL (30-36); MEAN PLATELET VOLUME 8.4 FL (6.5-11.5); RED BLOOD COUNT 3.05 X10e (3.90-5.30); RED CELL DISTRIBUTION WIDTH 16.8 % (11.0-15.5); WHITE BLOOD COUNT 9.2 X10e3 (4.0-10.5)
[2017-03-02 07:39] LABS: BUN/CREATININE RATIO 38.57; CALCIUM SERUM 8.9 mg/dL (8.4-10.2); CREATININE SERUM 1.4 mg/dL (0.6-1.4); GLOM FILT RATE Estimated 38.2 mL/min (>60); MAGNESIUM 2.1 mg/dL (1.6-3.0); POTASSIUM 4.9 mmol/L (3.5-5.1)
[2017-03-03 05:17] LABS: HEMATOCRIT 25.1 % (35.0-45.0); HEMOGLOBIN 8.3 gm/dL (12.0-16.0); MEAN CELL VOLUME 85.6 FL (83-96); MEAN CORPUSCULAR HEMOGLOBIN 28.2 PG (28-34); MEAN CORPUSCULAR HGB CONC 32.9 g/dL (30-36); MEAN PLATELET VOLUME 8.5 FL (6.5-11.5); RED BLOOD COUNT 2.94 X10e (3.90-5.30); RED CELL DISTRIBUTION WIDTH 16.7 % (11.0-15.5); WHITE BLOOD COUNT 8.4 X10e3 (4.0-10.5)
[2017-03-03 07:32] LABS: CALCIUM SERUM 8.7 mg/dL (8.4-10.2); CREATININE SERUM 1.5 mg/dL (0.6-1.4); GLOM FILT RATE Estimated 35.2 mL/min (>60); POTASSIUM 4.9 mmol/L (3.5-5.1)
[2017-03-04 05:10] LABS: HEMATOCRIT 28.4 % (35.0-45.0); HEMOGLOBIN 9.1 gm/dL (12.0-16.0); MEAN CELL VOLUME 85.4 FL (83-96); MEAN CORPUSCULAR HEMOGLOBIN 27.4 PG (28-34); MEAN CORPUSCULAR HGB CONC 32.1 g/dL (30-36); MEAN PLATELET VOLUME 8.5 FL (6.5-11.5); RED BLOOD COUNT 3.32 X10e (3.90-5.30); RED CELL DISTRIBUTION WIDTH 16.6 % (11.0-15.5); WHITE BLOOD COUNT 11.1 X10e3 (4.0-10.5)
[2017-03-04 06:59] LABS: CALCIUM SERUM 8.8 mg/dL (8.4-10.2); CREATININE SERUM 1.4 mg/dL (0.6-1.4); GLOM FILT RATE Estimated 38.2 mL/min (>60); POTASSIUM 4.5 mmol/L (3.5-5.1)
[2017-03-05 05:30] LABS: HEMATOCRIT 29.5 % (35.0-45.0); HEMOGLOBIN 9.4 gm/dL (12.0-16.0); MEAN CELL VOLUME 86.3 FL (83-96); MEAN CORPUSCULAR HEMOGLOBIN 27.5 PG (28-34); MEAN CORPUSCULAR HGB CONC 31.9 g/dL (30-36); MEAN PLATELET VOLUME 8.5 FL (6.5-11.5); RED BLOOD COUNT 3.41 X10e (3.90-5.30); RED CELL DISTRIBUTION WIDTH 16.5 % (11.0-15.5); WHITE BLOOD COUNT 11.3 X10e3 (4.0-10.5)
[2017-03-05 06:22] LABS: BUN/CREATININE RATIO 42.14; CALCIUM SERUM 8.6 mg/dL (8.4-10.2); CREATININE SERUM 1.4 mg/dL (0.6-1.4); GLOM FILT RATE Estimated 38.2 mL/min (>60)
[2017-03-05 10:59] LABS: PARTIAL THROMBOPLASTIN TIME 21.3 SECONDS (23.5-31.3); PROTHROMBIN TIME (PATIENT) 10.9 SECONDS (10.0-11.7)
[2017-03-07 06:32] LABS: HEMATOCRIT 29.6 % (35.0-45.0); HEMOGLOBIN 9.6 gm/dL (12.0-16.0); MEAN CELL VOLUME 86.4 FL (83-96); MEAN CORPUSCULAR HEMOGLOBIN 27.9 PG (28-34); MEAN CORPUSCULAR HGB CONC 32.3 g/dL (30-36); MEAN PLATELET VOLUME 8.1 FL (6.5-11.5); RED BLOOD COUNT 3.42 X10e (3.90-5.30); RED CELL DISTRIBUTION WIDTH 17.1 % (11.0-15.5); WHITE BLOOD COUNT 10.4 X10e3 (4.0-10.5)
[2017-03-07 07:04] LABS: BUN/CREATININE RATIO 45.83; CALCIUM SERUM 8.3 mg/dL (8.4-10.2); CREATININE SERUM 1.2 mg/dL (0.6-1.4); GLOM FILT RATE Estimated 46.1 mL/min (>60); POTASSIUM 3.9 mmol/L (3.5-5.1)
[2017-03-07] MEDS ORDERED: DELTASONE20 MG PO (15:49)
[2017-03-07] MEDS ORDERED: SILDENAFIL20 MG PO (15:59)
[2017-03-07] MEDS ORDERED: BREO ELLIPTA 11 EACH INH (16:00)
[2017-04-11] MEDS ORDERED: METFORMIN PO (11:33)
== END 2017-03-07 18:17 | disposition home or self-care (01) | DRG 180 ==
LOC: CED 13:47 → CEDOF 16:00 → C5B 16:00 → CED 16:45 → CEDOF 16:45 → C5B 18:20 → CEDOF 18:20 → C5B 18:20
PROVIDERS: Emergency Medicine; Family Medicine; Internal Medicine; Nurse Practitioner; Radiology Diagnostic Radiology
PROC: B24BZZZ Ultrasonography of Heart with Aorta (ICD-10-PCS; 2017-02-28)
PROC: 0BBF3ZX Excision of Right Lower Lung Lobe, Percutaneous Approach, Diagnostic (ICD-10-PCS; principal; 2017-03-05)
PROC: B24BZZZ Ultrasonography of Heart with Aorta (ICD-10-PCS; 2017-03-06)
DX: C34.31 Malignant neoplasm of lower lobe, right bronchus or lung (principal); J96.21 Acute and chronic respiratory failure with hypoxia; N17.9 Acute kidney failure, unspecified; J44.1 Chronic obstructive pulmonary disease with (acute) exacerbation; I13.0 Hypertensive heart and chronic kidney disease with heart failure and stage 1 through stage 4 chronic kidney disease, or unspecified chronic kidney disease; I50.32 Chronic diastolic (congestive) heart failure; M48.55XA Collapsed vertebra, not elsewhere classified, thoracolumbar region, initial encounter for fracture; Z87.891 Personal history of nicotine dependence; I27.2 Other secondary pulmonary hypertension; E11.22 Type 2 diabetes mellitus with diabetic chronic kidney disease; N18.9 Chronic kidney disease, unspecified; I48.0 Paroxysmal atrial fibrillation; Z99.81 Dependence on supplemental oxygen; Z86.73 Personal history of transient ischemic attack (TIA), and cerebral infarction without residual deficits; Z88.0 Allergy status to penicillin; Z88.8 Allergy status to other drugs, medicaments and biological substances; I08.1 Rheumatic disorders of both mitral and tricuspid valves; G47.33 Obstructive sleep apnea (adult) (pediatric); I25.118 Atherosclerotic heart disease of native coronary artery with other forms of angina pectoris; Z95.5 Presence of coronary angioplasty implant and graft; E78.5 Hyperlipidemia, unspecified; D53.9 Nutritional anemia, unspecified
CPT/HCPCS: 71010; 71250; 77012; 78582; 80048; 80076; 82274; 82550; 82553; 82728; 82947; 83036; 83540; 83550; 83605; 83735; 83880; 84100; 84146; 84484; 85025; 85027; 85610; 85730; 86850; 86900; 86901; 87040; 88305; 88341; 88342; 93005; 93306; 94640; 94664; 94760; 94761; 97116; 97162; 97166; 97530; 97535; 99152; 99153; 99291; A9540; A9567; G8978-GP; G8979-GP; G8980-GP; G8987-GO; G8988-GO; J0456; J0696; J1626; J1815; J1940; J2250; J2920; J3010; J3475; J3490